=== PATIENT | male | born 1980 | race Caucasian/White ===

== ENCOUNTER 2017-03-15 16:47 | Emergency (ER) | payer BC ==
[2017-03-15 18:13] VITALS: BP 131/78
--- NOTE | 2017-03-15 18:39 | ED ---
Laceration/Wound HPI - HPI Summary HPI Summary: 36M presents with right hand laceration from piece of metal. He denies any foreign body. His tetanus is up to date. His laceration is on the dorsum of his hand near his thumb. bleeding is controlled. full ROM. minimal pain. he is right handed. 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 pt states Musculoskeletal History: Reports: Other Musculoskeletal History - left knee injury Sensory History: Reports: Hx Contacts or Glasses Denies: Hx Hearing Aid Opthamlomology History: Reports: Hx Contacts or Glasses Psychiatric History: Denies: Hx Panic Disorder - Surgical History Surgery Procedure, Year, and Place: right AC joint reconstruction 2009 Hx Anesthesia Reactions: No Infectious Disease History: No Infectious Disease History: Denies: Traveled Outside the [place] in Last 30 Days - Family History Known Family History: Positive: Hypertension - Social History Alcohol Use: Occasionally Alcohol Amount: 3 x week beer Substance Use Type: Reports: None Smoking Status (MU): Never Smoked Tobacco Review of Systems Negative: Fever Negative: Chest Pain Negative: Shortness Of Breath Positive: Other - laceration right hand All Other Systems Reviewed And Are Negative: Yes Physical Exam Triage Information Reviewed: Yes Vital Signs On Initial Exam: Initial Vitals Temp Pulse Resp BP Pulse Ox 97.4 F 92 20 134/77 97 03/15/17 16:51 03/15/17 16:51 03/15/17 16:51 03/15/17 16:51 03/15/17 16:51 Vital Signs Reviewed: Yes Appearance: Positive: Well-Appearing Skin: Positive: Warm, Dry, Other - 2cm superficial laceration on dorsum of hand near right thumb Head/Face: Positive: Normal Head/Face Inspection Eyes: Positive: Normal, Conjunctiva Clear Respiratory/Lung Sounds: Positive: Clear to Auscultation, Breath Sounds Present Cardiovascular: Positive: Normal, RRR Musculoskeletal: Positive: Strength/ROM Intact - right hand, Other - good pulses , capillary refill<2 secs Procedures - Laceration/Wound Repair 1 Location: Other - right hand Description: Linear Anesthesia: Local, 1.0% Length, Depth and Shape: 2cm Betadine Prep?: Yes Irrigated w/ Saline (ccs): 300 Closure: Single Layer Suture Type: Prolene - 4-0 Number of Sutures: 3 Diagnostics - Vital Signs Vital Signs Temp Pulse Resp BP Pulse Ox 03/15/17 18:10 97.4 F 89 18 131/78 100 03/15/17 16:51 97.4 F 92 20 134/77 97 - Laboratory Lab Statement: Any lab studies that have been ordered have been reviewed, and results considered in the medical decision making process. Laceration Repair Course/Dx - Course Course Of Treatment: 36M presents with right hand laceration from piece of metal. He denies any foreign body. His tetanus is up to date. His laceration is on the dorsum of his hand near his thumb. bleeding is controlled. full ROM. cleaned and placed 3 sutures. patient understands and agrees with plan. - Differential Dx Differental Diagnoses: Abrasion, Avulsion, Laceration - Clinical Impression Provider Diagnoses: Laceration of right hand Discharge - Discharge Plan Condition: Good Disposition: HOME Patient Education Materials: Care For Your Stitches (ED) Referrals: Alexis Xavier MD [Primary Care Provider] - Additional Instructions: Take Tylenol or ibuprofen for pain Keep area clean and dry for 48 hours Return to ED or primary in 10-14 days to have sutures removed Return to ED if develop signs of infection such as fever, spreading redness, or pus.
== END 2017-03-15 18:55 | disposition home or self-care (01) ==
LOC: ED 16:47
DX: S61.411A Laceration without foreign body of right hand, initial encounter (principal); W45.8XXA Other foreign body or object entering through skin, initial encounter; Y93.9 Activity, unspecified; Y92.9 Unspecified place or not applicable
CPT/HCPCS: 12001; 99281